=== PATIENT | male | born 1955 | race Caucasian/White ===

== ENCOUNTER 2021-04-02 19:20 | Emergency (ER) | payer OTHER ==
[~2021-04-02] VITALS: Ht 175.3 cm; Wt 94.8 kg
[~2021-04-02 19:20] MED LIST: JANUMET XR 50-1 EAC1; ZOCOR20 MG
[2021-04-02] MEDS ORDERED: SIMVASTATIN20 MG PO (19:44)
[2021-04-02] MEDS ORDERED: METFORMIN HCL1000 M3 PO (19:44)
[2021-04-02] MEDS ORDERED: GLIMEPIRIDE4 M1 PO (19:44)
[2021-04-02] MEDS ORDERED: PEPCID AC20 MG PO (20:22)
== END 2021-04-02 20:34 | disposition home or self-care (01) ==
LOC: ER 19:20
DX: R10.13 Epigastric pain (principal)

== ENCOUNTER 2022-08-24 09:37 | Outpatient (CLI) | payer OTHER ==
[~2022-08-24 09:37] MED LIST changes: +GLIMEPIRIDE4 M1 PO; +METFORMIN HCL1000 M3 PO; +PEPCID AC20 MG PO; +SIMVASTATIN20 MG PO
== END 2022-08-24 09:42 | disposition home or self-care (01) ==
LOC: RAD 09:37
PROVIDERS: ATTEND Internal Medicine Cardiovascular Disease
DX: M12.9 Arthropathy, unspecified (principal); M46.48 Discitis, unspecified, sacral and sacrococcygeal region; J44.9 Chronic obstructive pulmonary disease, unspecified

== ENCOUNTER → 2022-09-08 | Outpatient (CLI) | payer OTHER | END | disposition home or self-care (01) | LOC: NUCLEAR 09-01 08:00 | PROVIDERS: ATTEND Internal Medicine Cardiovascular Disease | DX: I73.9 Peripheral vascular disease, unspecified (principal) ==

== ENCOUNTER 2022-10-13 07:40 | Outpatient (CLI) | payer OTHER | END 2022-10-13 07:49 | disposition home or self-care (01) | LOC: NUCLEAR 07:40 | PROVIDERS: ATTEND Internal Medicine | DX: I11.9 Hypertensive heart disease without heart failure (principal); E78.2 Mixed hyperlipidemia; I25.10 Atherosclerotic heart disease of native coronary artery without angina pectoris; R07.9 Chest pain, unspecified ==

== ENCOUNTER 2022-11-07 08:36 | Emergency (ER) | payer OTHER ==
[~2022-11-07] VITALS: Ht 170.2 cm; Wt 84.8 kg
[2022-11-07] MEDS ORDERED: DICLOFENAC POTA50 MG PO (12:12)
== END 2022-11-07 12:30 | disposition home or self-care (01) ==
LOC: ER 08:36
DX: M25.511 Pain in right shoulder (principal); E11.9 Type 2 diabetes mellitus without complications; I10 Essential (primary) hypertension

== ENCOUNTER 2022-12-15 08:40 | Outpatient (CLI) | payer OTHER ==
[~2022-12-15 08:40] MED LIST changes: +DICLOFENAC POTA50 MG PO
== END 2022-12-15 08:44 | disposition home or self-care (01) ==
LOC: SONOGRAMA 08:40
DX: M75.121 Complete rotator cuff tear or rupture of right shoulder, not specified as traumatic (principal)